=== PATIENT | female | born 1970 | race Two or more races ===

== ENCOUNTER 2020-04-24 19:59 | Inpatient (IN) | payer MEDICAID, OTHER ==
[~2020-04-24] VITALS: Ht 170.2 cm; Wt 131.5 kg
[2020-04-24 20:40] LABS: BASOPHILS # (AUTO) 0.1 /CMM (0.0-0.2); BASOPHILS % (AUTO) 0.8 % (0.0-2.0); EOSINOPHILS % (AUTO) 2.8 % (0.0-6.0); HEMATOCRIT 39 % (33-45); HEMOGLOBIN 12.7 g/dL (11.5-14.8); LYMPHOCYTES # (AUTO) 2.7 /CMM (0.8-4.8); LYMPHOCYTES % (AUTO) 32.4 % (20.0-44.0); MEAN CORPUSCULAR HGB CONC 33 g/dl (31.0-36.0); MEAN CORPUSCULAR VOLUME 91 fL (82-100); MONOCYTES # (AUTO) 0.7 /CMM (0.1-1.30); MONOCYTES % (AUTO) 8.4 % (2.0-12.0); NEUTROPHILS # (AUTO) 4.7 /CMM (1.8-8.9); NEUTROPHILS % (AUTO) 55.6 % (43.0-81.0); PLATELET COUNT (AUTO) 285 /CMM (150-450); RED BLOOD CELL COUNT(AUTO) 4.25 MIL/uL (4.0-5.2); WHITE BLOOD COUNT (AUTO) 8.5 K/uL (4.3-11.0)
--- NOTE | 2020-04-24 20:51 | NUR ---
ERA FROM HOME TO ER BED 12. AAOX4. NOT IN RESP DISTRESS, BREATHING EVEN AND UNLABORED. BROUGHT IN FOR LEFT SIDED NUMBNESS WHICH STARTED @ 1630. PER REPORT AND PT, SHE WAS ON HER WAY OUT FOR DINNER WHEN STARTED TO FEEL NUMB AND TINGLING, SHE WAS REPORTED TO HAVE FACIAL DROOP AT THAT TIME BUT NON NOTED UPON ASSESSMENT. PT VERBALIZED THAT THE SYPMPTOMS IS NOT PRESENT WHILE WE ARE DOING THE ASSESSMENT. MD WAS AT THE BEDSIDE FOR EVAL. ORDERS RECEIVED NOTED AND CARRIED OUT. IV LINE ESTABLISHED ON L AC 20G. BLOO DRAWN AND GIVEN TO TEXTILES SALES REPRESENTATIVE AT BEDSIDE.
--- NOTE | 2020-04-24 21:01 | NUR ---
BACK FROM CT ON [facility]
[2020-04-24 21:02] LABS: CALCIUM, SERUM 8.4 mg/dL (8.5-10.1); CARBON DIOXIDE 24 mmol/L (21-32); CHLORIDE 104 mmol/L (98-107); CREATININE 0.8 mg/dL (0.6-1.3); GLUCOSE 93 mg/dL (74-106); POTASSIUM 3.5 mmol/L (3.5-5.1); SODIUM SERUM 138 mmol/L (136-145); UREA NITROGEN, BLOOD 16 mg/dL (7-18)
--- NOTE | 2020-04-24 21:08 | NUR ---
COVID SWAB DONE AND SENT TO LAB
--- NOTE | 2020-04-24 21:08 | NUR ---
WENT TO PT TO DO COVID SWAB. PT VERBALIZED THAT THE ARM TIGNLING AND WITH PAIN. MD MADE AWARE.
[2020-04-24] MEDS ORDERED: ALPRAZOLAM 0.5 MG TABLET PO ONE (21:30)
[2020-04-24] MEDS ORDERED: ALPRAZOLAM 0.5 MG TABLET ONE (21:41)
--- NOTE | 2020-04-24 22:09 | NUR ---
SPOKE WITH PATIENT'S , CASSANDRA ANIL FOR UPDATES REGARDING HER .
--- NOTE | 2020-04-24 22:30 | NUR ---
REPORT GIVEN TO JOEL JHA FOR SHAN
[2020-04-24 22:45] VITALS: BP 170/75
[2020-04-24 22:50] VITALS: BP 162/99
--- NOTE | 2020-04-24 22:50 | NUR ---
MS RN ADMITTING NOTES PATIENT RECEIVED VIA GURNEY ACCOMPANIED BY ER STAFF. PATIENT AMBULATORY, A/O X 4, STABLE ON RA WITH BREATHING EVEN AND UNLABORED. NO SOB NOTED. NO SIGNS OF ACUTE DISTRESS. COMPLAINTS OF DISCOMFORT ON L SIDE. IV LOCATED ON R AC #20 SL. VITALS TAKEN. BELONGINGS ACCOUNTED FOR. SKIN ASSESSMENT DONE. PATIENT ORIENTED TO ROOM AND STAFF. WILL CONTINUE TO MONITOR.
--- NOTE | 2020-04-24 22:51 | NUR ---
PT TRANSPORT TO UNIT ON [facility] WITH EMT AND RN AT BEDSIDE W/ ACLS PROTOCOL. NAD NOTED DURING TRANSPORT.
[2020-04-24] MEDS ORDERED: hydrALAZINE HCL IV 20 MG VIAL IV PRN (23:00)
[2020-04-24] MEDS ORDERED: ACETAMINOPHEN 325 MG TABLET PO PRN (23:00)
[2020-04-24] MEDS ORDERED: MAG HYDROX/AL HYDROX/SIMETH 30 ML UDC PO PRN (23:00)
[2020-04-25] VITALS (7 sets, daily range): BP systolic 104–162; BP diastolic 72–99
[2020-04-25] MEDS ORDERED: BLOOD SUGAR DIAGNOSTIC 1 EACH STRIP IN SCH
--- NOTE | 2020-04-25 01:26 | NUR ---
RN NOTES PATIENT COMPLAINING OF NECK AND SHOULDER PAIN AND STIFFNESS. WARM COMPRESS APPLIED.
[2020-04-25 03:10] LABS: APPEARANCE,URINE CLEAR (CLEAR); BILIRUBIN,URINE NEGATIVE (NEGATIVE); BLOOD, URINE SMALL Ery/uL (NEGATIVE); COLOR,URINE YELLOW (YELLOW); KETONES,URINE NEGATIVE (NEGATIVE); LEUKOCYTE ESTERASE ,URINE NEGATIVE (NEGATIVE); NITRITE, URINE NEGATIVE (NEGATIVE); PROTEIN,URINE NEGATIVE (NEGATIVE); UGLUCOSE NEGATIVE (NEGATIVE); UROBILINOGEN,URINE 0.2 EU/dL (0.2)
[2020-04-25] MEDS: HEPARIN SODIUM, PORCINE 5000 UNITS/1 ML VIAL SQ SCH ×3 (04:06→22:12)
--- NOTE | 2020-04-25 06:41 | NUR ---
RN CLOSING NOTES PATIENT RESTING IN BED A/O X 4. STABLE ON RA WITH BREATHING EVEN AND UNLABORED, NO SOB NOTED. NO SIGNS OF ACUTE DISTRESS. COMPLAINTS OF PAIN ON LEFT SIDE OF UPPER EXTREM, NECK AND SHOULDER- HEAT APPLIED. TELE MONITOR READING SR 68. IV LOCATED ON [facility] #20 SL. SAFETY PRECAUTIONS IN PLACE WITH BED IN LOWEST POSITION, CALL LIGHT WITHIN REACH, BREAKS ON, SIDE RAILS UP. ALL NEEDS ATTENDED TO. WILL ENDORSE TO ONCOMING SHIFT ABOUT SHAN.
[2020-04-25 07:26] LABS: BASOPHILS # (AUTO) 0.1 /CMM (0.0-0.2); BASOPHILS % (AUTO) 0.8 % (0.0-2.0); HEMATOCRIT 39 % (33-45); HEMOGLOBIN 12.8 g/dL (11.5-14.8); LYMPHOCYTES # (AUTO) 2.4 /CMM (0.8-4.8); LYMPHOCYTES % (AUTO) 32.4 % (20.0-44.0); MEAN CORPUSCULAR HGB CONC 33 g/dl (31.0-36.0); MEAN CORPUSCULAR VOLUME 90 fL (82-100); MONOCYTES # (AUTO) 0.6 /CMM (0.1-1.30); MONOCYTES % (AUTO) 8.6 % (2.0-12.0); NEUTROPHILS # (AUTO) 4.1 /CMM (1.8-8.9); NEUTROPHILS % (AUTO) 54.2 % (43.0-81.0); PLATELET COUNT (AUTO) 280 /CMM (150-450); RED BLOOD CELL COUNT(AUTO) 4.32 MIL/uL (4.0-5.2); WHITE BLOOD COUNT (AUTO) 7.5 K/uL (4.3-11.0)
[2020-04-25] MEDS: BLOOD SUGAR DIAGNOSTIC 1 EACH STRIP IN SCH ×4 (07:30→22:13)
--- NOTE | 2020-04-25 07:35 | NUR ---
MS/RN Opening note Patient received from assistant casino shift manager. A/O X4, vital signs stable, denies any pain or discomfort. Ambulatory, skin intact, no new concerns at this time. Heplock to right AC flushing well with normal saline, no signs of any infiltration seen. Call light within reach, bed in low setting, brakes locked, side rails X3 in upright position. Will continue to monitor and ensure safety.
[2020-04-25 07:54] LABS: ALBUMIN 3.3 g/dL (3.4-5.0); CALCIUM, SERUM 8.3 mg/dL (8.5-10.1); CREATININE 0.6 mg/dL (0.6-1.3); MAGNESIUM 2.1 mg/dL (1.8-2.4); POTASSIUM 3.5 mmol/L (3.5-5.1)
[2020-04-25 08:04] LABS: THYROID STIMULATING HORMONE 2.346 uIU/mL (0.358-3.74)
[2020-04-25] MEDS: PANTOPRAZOLE 40 MG TABLET.DR PO SCH (08:06)
[2020-04-25] MEDS: ASPIRIN EC 325 MG TABLET.DR PO SCH (08:06)
[2020-04-25] MEDS ORDERED: METO25TA20 PO (09:27)
[2020-04-25] MEDS ORDERED: NICO-676 TP (09:27)
[2020-04-25] MEDS ORDERED: LISI-607 PO (09:27)
[2020-04-25] MEDS ORDERED: AMIT50TA3 PO (09:27)
[2020-04-25] MEDS ORDERED: ESCI10TA PO (09:27)
--- NOTE | 2020-04-25 09:49 | NUR ---
MS/RN Swallow evaluation Bedside swallow evaluatin at bedside, no difficulties noted.
--- NOTE | 2020-04-25 11:30 | NUR ---
Social Service consult requested by Elina Capps NP for stroke. Patient presented to [facility] ER 04/24, per note patient had left sided numbness. Patient is a 49-year-old female. Patient is alert and orientedx4. Patient confirmed date of , social security, and address on face sheet. Per patient, apartment is above an extra space storage location, on-site apartment. Patient reports living with Jose . Patient reports she met Jose 20 years ago and they have been for 4 years. Per patient, Jose is the only person working in the home. Per patient, no one in the home receives government aid like [employer] or Food [place]. Patient reports drinking alcohol on special occasions only, if that. Patient denies drug use. Patient reports cigarette use. Per patient she smokes 4 cigarette buds a day, sometimes less. SW asked this patient if she would like information on how to stop smoking and patient declined. Patient does not report a mental health diagnosis. Patient denies auditory and visual hallucinations. Patient denies suicidal and homicidal ideation. Party Plan Sales Consultant conducted PHQ-9 on this patient. Patient scored a 2 for non to mild depression. This SW to provide stroke resources to the patient. This SW to remain available for all needs regarding this patient.
--- NOTE | 2020-04-25 11:44 | NUR ---
MS/RN Blood sugar Blood sugar at 1130 87, no coverage needed.
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
--- NOTE | 2020-04-25 15:00 | NUR ---
MS/RN S/B Nain Raza Seen by DNP - continue withcurrent plan of care, await neuro consult with Dr More.
[2020-04-25] MEDS: HYDROCODONE/APAP 10/325MG TABLET PO PRN (16:55)
--- NOTE | 2020-04-25 18:15 | NUR ---
MS/RN End note Remains in stable condition. All needs attended, questions and concerns addressed. Awaiting neuro consult with Dr More.
--- NOTE | 2020-04-25 19:37 | NUR ---
ms rn opening note received patient in bed. a/ox4. tolerating room air. respirations are even and unlabored. no s/s sob noted. c/o pain in left arm and neck d/t muscle twitching/tremors. pain medication not due. patient understands. currently has ice pack on left shoulder. in no apparent distress. iv access in LAC#20 patent and saline locked. bed is low and locked, hob elevated in high fowlers, side rails up x2. call light within reach. will continue to monitor.
--- NOTE | 2020-04-25 21:57 | NUR ---
ms rn note called fabrication manager MD Dr. Rollins that patient is requesting a sleeping pill. MD telephone order ambien 5mg one time. order read back noted and carried out. will continue to monitor.
[2020-04-25] MEDS ORDERED: ZOLPIDEM TARTRATE 5 MG TABLET PO ONE (22:00)
[2020-04-25] MEDS: SIMVASTATIN 10 MG TABLET PO SCH (22:03)
[2020-04-26] MEDS: HEPARIN SODIUM, PORCINE 5000 UNITS/1 ML VIAL SQ SCH ×3 (05:40→21:39)
[2020-04-26] MEDS: BLOOD SUGAR DIAGNOSTIC 1 EACH STRIP IN SCH ×4 (06:07→22:02)
--- NOTE | 2020-04-26 06:34 | NUR ---
ms rn closing note patient resting in bed. a/ox4. remains tolerating room air. respirations are even and unlabored. no resp distress. no apparent distress. iv access maintained in LAC#20 patent and saline locked. bed remains low and locked, hob elevated in high fowlers, side rails up x2. call light within reach. will endorse to next shift.
--- NOTE | 2020-04-26 07:30 | NUR ---
RN Opening Note Received patient in bed, AO x 4, able to responds all stimuli, does no c/o pain or discomfort. Skin is warm to touch, keep clean/dry, intact IV site with SL. Respiratory even and unlabored on room air, no distress observed. Kept bed in locked with elevated HOB for ensure airway and aspiration precaution. Call light within reach, will continue to monitor.
[2020-04-26] MEDS: PANTOPRAZOLE 40 MG TABLET.DR PO SCH (07:45)
[2020-04-26 08:00] VITALS: BP 154/103
[2020-04-26] MEDS: ASPIRIN EC 325 MG TABLET.DR PO SCH (08:45)
[2020-04-26] MEDS: LORAZEPAM 1 MG TABLET PO PRN (14:06)
[2020-04-26 16:00] VITALS: BP 149/102
[2020-04-26] MEDS ORDERED: OLANZAPINE 10 MG VIAL IM STA (16:23)
--- NOTE | 2020-04-26 18:55 | NUR ---
RN Closing note Patient in bed, back from MRI brain, dose no appears pain or distress, respiratory even and unlabored on room air. Skin is warm to touch, keep clean/dry. Pt spoke with Dr. More and received new order MRI brain and Zyprexa for muscle twitching. Kept bed in locked with elevated HOB for ensure airway and aspiration precaution. Call light within reach, will endorse overnight cashier.
--- NOTE | 2020-04-26 19:36 | NUR ---
MS RN NOTES RECEIVED PATIENT AWAKE ALERT ORIENTED X4. BREATHING EVEN AND UNLABORED. NO SIGNS OF ACUTE RESPIRATORY OR CARDIAC DISTRESS NOTED. PERIPHERAL IV ACCESS INTACT AND PATENT. SAFETY MEASURES IN PLACE, ASPIRATION PRECAUTION EMPHASIZED. CALL LIGHT WITH IN EASY REACH. DENIES ANY PAIN OR DISCOMFORT AT THIS TIME. BED IN LOW LOCKED POSITIONED. ALL NEEDS ANTICIPATED. WILL CONTINUE TO MONITOR ACCORDINGLY.
[2020-04-26 20:22] VITALS: BP 153/94
--- NOTE | 2020-04-26 21:20 | NUR ---
MS RN NOTES RECEIVED REPORT FROM RADIOLOGY DEPARTMENT,AT 21:09 PER MICHELE. MRI BRAIN WITHOUT CONTRAST SHOWS 2.1 CM ACUTE STROKE AT RIGHT BASAL GANGLIA, NO HEMORRHAGE, NO MIDLINE SHIFT. INFORMED DR. KAMLA FRAGOSO MD NO ORDERS AT THIS TIME.
[2020-04-26] MEDS: SIMVASTATIN 10 MG TABLET PO SCH (21:41)
[2020-04-27] MEDS: HEPARIN SODIUM, PORCINE 5000 UNITS/1 ML VIAL SQ SCH ×3 (04:39→22:23)
--- NOTE | 2020-04-27 06:34 | NUR ---
MS RN NOTES ALL NEEDS ATTENDED AND MET. ABLE TO REST AND SLEPT AT INTERVALS. NOTED WITH MUSCLE TWITCHING MOST PROMINENT ON HER LEFT UPPER EXTREMITY, HER ARM AND LEFT HAND. NO SIGNS OF BLEEDING. ABLE TO MAKE NEEDS KNOWN. ABLE TO WALK TOWARDS THE TOILET WITH ASSISTANCE FOR SAFETY. SAFETY MEASURES INPLACE. CALL LIGHT WITH IN EASY REACH. ALL NEEDS ANTICIPATED. DENIES PAIN AT THIS TIME. WILL ENDORSE TO AM NURSE FOR CONTINUITY OF CARE.
[2020-04-27] MEDS: BLOOD SUGAR DIAGNOSTIC 1 EACH STRIP IN SCH ×4 (07:03→22:26)
--- NOTE | 2020-04-27 07:30 | NUR ---
MS RN NOTES INFORMED DR. JULY MD REGARDING MRI OF THE BRAIN RESULT, 21 MM ACUTE STROKE, AT RIGHT BASAL GANGLIA NO HEMORRHAGE, NO MIDLINE SHIFT. NO ORDER AT THIS TIME. ENDORSED TO AM NURSE.
--- NOTE | 2020-04-27 07:33 | NUR ---
ms rn received on bed, awake,alert,oriented x4,patient noted to have a pain at left arm 6/10, constantly shaking, no sob noted, will monitor patient.
[2020-04-27 08:00] VITALS: BP 145/94
[2020-04-27] MEDS: PANTOPRAZOLE 40 MG TABLET.DR PO SCH (08:37)
[2020-04-27] MEDS: HYDROCODONE/APAP 10/325MG TABLET PO PRN (08:37)
[2020-04-27] MEDS: ASPIRIN EC 325 MG TABLET.DR PO SCH (08:37)
[2020-04-27] MEDS ORDERED: OLANZAPINE 10 MG VIAL IM STA (08:59)
[2020-04-27] MEDS ORDERED: risperiDONE 1 MG TABLET PO SCH (09:00)
--- NOTE | 2020-04-27 09:00 | NUR ---
ms bermudez breakfast served,due meds given,tolerated well.
--- NOTE | 2020-04-27 09:20 | NUR ---
ms lara freeman w/ doctor heather w/ orders made and carried out.
[2020-04-27] MEDS ORDERED: CT SWABBABLE VALVE TRANS SET 1 EA INFUS.SET MC ONE (10:00)
[2020-04-27] MEDS ORDERED: IV NS 0.9% 250 ML IV ONE (10:00)
[2020-04-27] MEDS ORDERED: IOHEXOL-350 100 ML VIAL IV ONE (10:00)
[2020-04-27] MEDS ORDERED: risperiDONE 1 MG TABLET PO PRN (10:30)
--- NOTE | 2020-04-27 11:56 | NUR ---
RN NOTE REAL ESTATE MANAGEMENT SPECIALIST RUSS [place] IS MADE AWARE TO DO MED RECON.
[2020-04-27 12:00] VITALS: BP 155/89
[2020-04-27] MEDS: GABAPENTIN 100 MG CAPSULE PO SCH ×2 (14:19→17:40)
[2020-04-27 16:00] VITALS: BP 122/70
--- NOTE | 2020-04-27 16:00 | NUR ---
ms rn dr. romero notified of cta carotid and brain result, awaiting for any orders.
--- NOTE | 2020-04-27 17:09 | NUR ---
ms rn on bed, no distress noted.
[2020-04-27 20:00] VITALS: BP_SYST 135; BP_SYST 150; BP_DIAS 70; BP_DIAS 80
[2020-04-27] MEDS: SIMVASTATIN 10 MG TABLET PO SCH (22:02)
[2020-04-28] VITALS (7 sets, daily range): BP systolic 127–177; BP diastolic 76–105
--- NOTE | 2020-04-28 00:38 | NUR ---
MS/TELE/RN PATIENT IS SLEEPING AT THIS TIME, APPEAR COMFORTABLE, NO SIGNS OF DISTRESS NOTED, CALL LIGHT IN REACH. WILL CONTINUE TO MONITOR.
[2020-04-28] MEDS: HYDROCODONE/APAP 10/325MG TABLET PO PRN ×2 (04:43→22:32)
[2020-04-28] MEDS: HEPARIN SODIUM, PORCINE 5000 UNITS/1 ML VIAL SQ SCH ×3 (05:32→20:54)
[2020-04-28] MEDS: BLOOD SUGAR DIAGNOSTIC 1 EACH STRIP IN SCH ×4 (06:21→21:08)
--- NOTE | 2020-04-28 06:31 | NUR ---
MS/TELE/RN PATIENT APPEAR SLEEPING AT THIS TIME, APPEAR COMFORTABLE, NO SIGNS OF DISTRESS NOTED, CALL LIGHT IN REACH, ALL NEEDS ATTENDED AT THIS TIME, WILL CONTINUE TO MONITOR.
--- NOTE | 2020-04-28 07:25 | NUR ---
PATIENT RELATIONS MANAGER OPENING NOTES BEDSIDE ENDORSEMENT DONE. PATIENT IS IN BED AWAKE AND VERBALLY RESPONSIVE. NOT IN ACUTE DISTRESS. AXO X4, ABLE TO MAKE NEEDS KNOWN. BREATHING EVEN AND UNLABORED, TOLERATING ROOM AIR. ON TELE MONITORING SR W/ HR IN THE 70'S, NO CARDIAC DISTRESS NOTED. IV SITE ON LAC G#20 INTACT AND PATENT. SAFETY PRECAUTIONS IN PLACE: BED IN LOWEST AND LOCKED POSITION, SR UP X2, CALL LIGHT PLACED W/IN REACH. WILL CONTINUE TO MONITOR.
[2020-04-28] MEDS: PANTOPRAZOLE 40 MG TABLET.DR PO SCH (07:55)
[2020-04-28] MEDS: GABAPENTIN 100 MG CAPSULE PO SCH ×3 (08:06→16:31)
[2020-04-28] MEDS: ASPIRIN EC 325 MG TABLET.DR PO SCH (08:06)
[2020-04-28] MEDS: OLANZAPINE 2.5 MG TABLET PO PRN ×3 (11:15→23:47)
--- NOTE | 2020-04-28 11:16 | NUR ---
RN NOTES PATIENT NOTED W/ UNINTENTIONAL/UNCONTROLLED TREMORS ON L ARM. DR. MUNOZ SPOKE TO PATIENT AND ORDERED TO GIVE ZYPREXA 2.5MG PO. ZYPREXA GIVEN AT 1115. WILL CONTINUE TO MONITOR.
--- NOTE | 2020-04-28 11:23 | NUR ---
RN NOTES PT SEEN AND EVALUATED BY . DIET CHANGED FROM [facility] REGULAR TO [facility] SOFT DIET. WILL CONTINUE TO MONITOR
--- NOTE | 2020-04-28 18:47 | NUR ---
PLASTERER SPRAY GUN CLOSING NOTES PATIENT IS IN BED AWAKE AND VERBALLY RESPONSIVE. NOT IN ACUTE DISTRESS. AXO X4 AND ABLE TO MAKE NEEDS KNOWN. BREATHING EVEN AND UNLABORED ON ROOM AIR. ON TELE MONITORING, SR W/ HR IN THE MID 70'S, NO CARDIAC DISTRESS NOTED. IV SITE ON LAC G#20 INTACT AND PATENT. AMBULATES SAFELY TO BR. SAFETY PRECAUTIONS IN PLACE: BED IN LOWEST AND LOCKED POSITION, SR UP X2, CALL LIGHT PLACED W/IN REACH. WILL ENDORSE TO DIABETES EDUCATOR RN FOR SHAN.
--- NOTE | 2020-04-28 20:00 | NUR ---
STOCK SAW OPERATOR: RECEIVED REPORT FROM DAY RN. PT IN BED, AWAKE, A/O X4, ON RA RESPIRATIONS EVEN AND UNLABORED. TELE SINUS RHYTHM HR 65, NOTED CHOREA MOVEMENT ON LEFT ARM, MD AWARE. NIHSS ASSESSMENT PERFORMED OBTAINED SCORE OF 3, SAME FROM PREVIOUS SCORE, PASSED SWALLOW SCREEN, DISCUSSED PLAN OF CARE TO PT. SEIZURE PRECAUTION MAINTAINED. SAFETY PRECAUTIONS FOR FALL INITIATED, CALL LIGHT IN REACH, WILL CONTINUE MONITORING PT.
--- NOTE | 2020-04-28 20:42 | NUR ---
RN NOTES: RECHECK BP, REMAINS ELEVATED 166/105 HR 90, DIRECTOR EAST COAST SALES RUSS CURRENTLY IN THE UNIT, INFORMED THERE IS PRN ORDER FOR APRESOLINE IV 20MG HOWEVER ONLY FOR TELE TD/ICU/CCU ONLY, PER DIRECTOR EAST COAST SALES ITS OKAY FOR NOW, CONTINUE MONITORING PT'S BP. OKAY TO GIVE P[RN PAIN MEDICATION OR ATIVAN.
[2020-04-28] MEDS: LORAZEPAM 1 MG TABLET PO PRN (20:55)
--- NOTE | 2020-04-28 20:56 | NUR ---
PRN ATIVAN: PT REQUESTING FOR ATIVAN FOR ANXIETY, STATED THIS WILL HELP HER RELAX. ALSO ACCDG TO PT, THE PAIN IS MOSTLY ON IV ACCESS SITE, RN WILL TRY INSERTING NEW IV ACCESS. PRN ATIVAN 1MG TAB PO ADMINISTERED TO PT AT THIS TIME. WILL CONTINUE MONITORING PT.
[2020-04-28] MEDS: SIMVASTATIN 10 MG TABLET PO SCH (21:10)
--- NOTE | 2020-04-28 22:32 | NUR ---
PRN NORCO: PT C/O IV ACCESS SITE PAIN (PREVIOUS ACCESS SITE RIGHT AC AREA)02/10, PRN NORCO 10/325 MG TAB PO ADMINISTERED TO PT AT THIS TIME.
--- NOTE | 2020-04-28 23:00 | NUR ---
RN NOTES: PAGED JUAN ALBERTO BECERRIL HOSPITALIST, BP STILL ELEVATED.
--- NOTE | 2020-04-28 23:06 | NUR ---
RN NOTES: NOTIFIED EPIC MD HOSPITALIST REGARDING BP OF PT, REMAINS ELEVATED, PRN APRESOLINE ONBOARD BUT DOSE INSTRUCTION ONLY SAYS TO GIVE IN ICU /CCU OR TELE TD, PER MD DO NOT GIVE, JUST MONITOR BLOOD PRESSURE. CHIP UNLOADERSAILAJA WATTERS MADE AWARE.
--- NOTE | 2020-04-28 23:47 | NUR ---
PRN ZYPREXA: PRN ZYPREXA ADMINISTERED FOR PT'S AGITATION, AND CHOREIC MOVEMENT.
[2020-04-29] VITALS (8 sets, daily range): BP systolic 127–177; BP diastolic 60–108
[2020-04-29] MEDS: HEPARIN SODIUM, PORCINE 5000 UNITS/1 ML VIAL SQ SCH ×3 (04:27→20:47)
[2020-04-29] MEDS: LORAZEPAM 1 MG TABLET PO PRN ×3 (04:28→18:22)
--- NOTE | 2020-04-29 04:29 | NUR ---
prn ativan: prn ativan administered for anxiety and agitation, unintentional movement of left arm.
[2020-04-29] MEDS: BLOOD SUGAR DIAGNOSTIC 1 EACH STRIP IN SCH ×4 (06:16→21:10)
--- NOTE | 2020-04-29 06:16 | NUR ---
accu check : blood sugar test performed and result is 112.
--- NOTE | 2020-04-29 06:54 | NUR ---
END OF SHIFT REPORT: PT REMAINS A/O X4, ON RA, NCHOREA MOVEMENT ON LEFT ARM AND LEGS NOTED TO STILL BE PRESENT AND WORSEN, MD AWARE. PRN ZYPREXA, ATIVAN, NORCO ADMINISTERED ORDER. IV ACCESS REMAINS PATENT AND LFUSHING WELL, ON HL, NO S/S OF IV INFILTRATION NOTED. NIHSS SCORE REMAINS 3. AMBULATES WITH ASSIST. REMAINS ON TELE MONITORING , VS REMAINS STABLE, NEED ATTENDED. ARU PLACEMENT. SAFETY PRECAUTIONS FOR FALL REMAINS ENGAGED, CALL LIGHT IN REACH, WILL ENDORSE TO DAY RN FOR CONTINUITY OF CARE.
--- NOTE | 2020-04-29 08:00 | NUR ---
SEED CLEANING MACHINE OPERATOR AM NOTES PATIENT IS IN BED AWAKE AND VERBALLY RESPONSIVE. NOT IN ACUTE DISTRESS. AXO X4 AND ABLE TO MAKE NEEDS KNOWN. BREATHING EVEN AND UNLABORED ON ROOM AIR. ON TELE MONITORING, SR W/ HR IN THE MID 70'S, NO CARDIAC DISTRESS NOTED. IV SITE ON LAC G#20 INTACT AND PATENT. AMBULATES SAFELY TO BR. SAFETY PRECAUTIONS IN PLACE: BED IN LOWEST AND LOCKED POSITION, SR UP X2, CALL LIGHT PLACED W/IN REACH.
[2020-04-29] MEDS: PANTOPRAZOLE 40 MG TABLET.DR PO SCH (08:18)
[2020-04-29] MEDS: CALCIUM CARB 600MG /VIT D 1 EACH TABLET PO SCH (08:19)
[2020-04-29] MEDS: ASPIRIN EC 325 MG TABLET.DR PO SCH (08:19)
[2020-04-29] MEDS: GABAPENTIN 100 MG CAPSULE PO SCH ×3 (08:19→16:14)
[2020-04-29] MEDS: HYDROCODONE/APAP 10/325MG TABLET PO PRN ×3 (08:51→20:49)
[2020-04-29] MEDS: OLANZAPINE 2.5 MG TABLET PO PRN (08:51)
--- NOTE | 2020-04-29 12:00 | NUR ---
DR MCDOWELL SPOKE TO THE PT VIA [employer].
[2020-04-29 14:06] LABS: *dPT CONFIRM RATIO 1.08 Ratio (0.00-1.40); *dRVVT 35.6 sec (0.0-47.0); PROTEIN C ACTIVITY 177 % (73-180)
--- NOTE | 2020-04-29 14:15 | NUR ---
DR MUNOZ CALLED WITH NEW ORDERS OF INCREASING ZYPREXA 3 MG PO Q 6 HRS ATC AND DC THE PRN AND MONITOR FOR EFFECTIVENESS.
[2020-04-29] MEDS: OLANZAPINE 2.5 MG TABLET PO SCH (16:05)
--- NOTE | 2020-04-29 16:59 | NUR ---
PT RESTING IN BED WATCHING ON HER PHONE. REMAINS AWAKE ,ALERT AND HAVEN'T HAD ANY EPISODE OF SEDATION WITH THE PRN MEDS OF NORCO,ATIVAN PO AND ZYPREXA SHE RECEIVED THE WHOLE SHIFT WITH NO S.S OF DISTRESS OR DISCOMFORT WITH OCCASIONAL FLAPPING MOTION OF HER LEFT ARM.ABLE TO MOVE RT ARM WNL.WILL CONTINUE TO MONITOR.CALL LIGHT PLACED WITHIN REACH.
[2020-04-29] MEDS ORDERED: OLANZAPINE 2.5 MG TABLET PO SCH (18:00)
--- NOTE | 2020-04-29 20:00 | NUR ---
PEST CONTROL PILOT OPENING NOTES RECEIVED PATIENT IN BED, AWAKE, CONSCIOUS, COOPERATIVE, A/O X 4, BREATHING AT ROOM AIR, UNLABORED BREATHING, NO SIGNS OF RESPIRATORY DISTRESS, ON TELE MONITORING, NO CARDIAC DISTRESS NOTED, RFA #22G, SIDE RAILS UP X 2, WILL CONTINUE TO MONITOR.
[2020-04-29] MEDS: SIMVASTATIN 10 MG TABLET PO SCH (21:10)
[2020-04-30] VITALS (8 sets, daily range): BP systolic 134–165; BP diastolic 75–123
[2020-04-30] MEDS: LORAZEPAM 1 MG TABLET PO PRN ×4 (01:09→21:58)
[2020-04-30] MEDS: HEPARIN SODIUM, PORCINE 5000 UNITS/1 ML VIAL SQ SCH ×3 (05:07→20:24)
[2020-04-30] MEDS: BLOOD SUGAR DIAGNOSTIC 1 EACH STRIP IN SCH ×4 (06:23→21:55)
[2020-04-30] MEDS: HYDROCODONE/APAP 10/325MG TABLET PO PRN ×4 (06:33→23:44)
--- NOTE | 2020-04-30 06:54 | NUR ---
TOUCH UP CARVER CLOSING NOTES ENDORSED PATIENT IN BED, AWAKE, CONSCIOUS, A/O X 4, BREATHING AT ROOM AIR, NO SIGNS OF RESPIRATORY DISTRESS WHOLE SHIFT, ON TELE MONITORING ST 113, NO CARDIAC DISTRESS WHOLE SHIT, RFA #22G, INTACT, FLUSHED, NO REDNESS OR INFILTRATION NOTED, DUE MEDS GIVEN, PROVIDED COMFORT AND CARE, SIDE RAILS UP X 2 FOR SAFETY, BED IN LOWEST POSITION.
--- NOTE | 2020-04-30 07:23 | NUR ---
MS/RN Opening note Patient received from night stocker. A/O X4, vital signs stable, complaining of pain to left arm, stating that it feels like muscle pain from where arm is constantly moving. [place] one tablet administered at 0630, will monitor effectiveness. Heplock to right forearm, flushing well with normal saline, no signs of infiltration seen. Tele reading normal sinus rhythm, heart rate in the 80's. Bed in low setting, upper side rails padded to prevent injury, brakes locked, call light within reach. Will continue to monitor and ensure safety.
[2020-04-30] MEDS: OLANZAPINE 2.5 MG TABLET PO SCH ×2 (08:06→13:11)
[2020-04-30] MEDS: PANTOPRAZOLE 40 MG TABLET.DR PO SCH (08:06)
[2020-04-30] MEDS: ASPIRIN EC 325 MG TABLET.DR PO SCH (08:06)
[2020-04-30] MEDS: GABAPENTIN 100 MG CAPSULE PO SCH ×3 (08:06→17:36)
[2020-04-30] MEDS: CALCIUM CARB 600MG /VIT D 1 EACH TABLET PO SCH (08:06)
--- NOTE | 2020-04-30 10:00 | NUR ---
MS/RN Pain Complaining of pain to left shoulder, requesting x-ray to ensure no muscle or tendon tear. DIE DESIGNER aware and will order x-ray.
--- NOTE | 2020-04-30 12:00 | NUR ---
MS/RN BLood sugar Blood sugar at 1130 107, no coverage at this time.
--- NOTE | 2020-04-30 14:00 | NUR ---
MS/RN S/B Anahi Lance CHECKER Seen by CHECKER - await placement. Call received from [facility], requested information provided. Stated they will call and speak with patient's Jose to obtain further information and then present case lynda kaye MD.
--- NOTE | 2020-04-30 15:28 | NUR ---
MS/RN S/B Dr Urbano Seen by Dr Urbano - annie increased to 5mg every six hours.
[2020-04-30] MEDS: OLANZAPINE 5 MG TABLET PO SCH ×2 (17:36→20:24)
--- NOTE | 2020-04-30 18:46 | NUR ---
MS/RN End note Patient requesting order be obtained for benadryl 50mg as this is the only medication that helps her to sleep. Anahi Lance called to ask for order. All other needs meet, updated as to plan of care and evaluation status for placement at acute rehab. updated via telephone to plan and in agreement. All questions and concerns addressed, will endorse to night order selector.
--- NOTE | 2020-04-30 19:30 | NUR ---
TELE/RN OPENING NOTES: PATIENT REPORT RECEIVED FROM DAY SHIFT RNEASTON. PT IN BED SITTING DOWN, WATCHING TV, A/OX4, NO C/O OF PAIN AT THIS TIME, LUE ARM IS CONSTANTLY MOVING. HEPLOCK TO RIGHT FOREARM, FLUSHING WELL WITH NORMAL SALINE, NO SIGNS OF INFILTRATION SEEN. TELE READING NORMAL SINUS RHYTHM WITH PVC, HEART RATE IN THE 90'S. SAFETY MEASURES IN PLACE. BED IN LOW, LOCKED POSITION WITH SR UPX2. UPPER SIDE RAILS PADDED TO PREVENT INJURY, BRAKES LOCKED, CALL LIGHT WITHIN REACH. WILL CONTINUE TO MONITOR ACCORDINGLY.
[2020-04-30] MEDS ORDERED: diphenhydrAMINE HCL 25 MG CAPSULE PO PRN (21:00)
[2020-04-30] MEDS: SIMVASTATIN 10 MG TABLET PO SCH (21:51)
--- NOTE | 2020-04-30 21:55 | NUR ---
TELE/RN NOTES: BLOOD SUGAR CHECK IS 101. NO S/S OF HYPERGLYCEMIA. PT STABLE. WILL KEEP MONITORING.
--- NOTE | 2020-04-30 21:58 | NUR ---
TELE/RN NOTES: PT COMPLAINED OF ANXIETY. REQUESTED ATIVAN. VS WNL AND STABLE. ADMINISTERED ATIVAN 1MG PO ORDERED. TOLERATED WELL. WILL CONTINUE TO MONITOR.
--- NOTE | 2020-04-30 23:44 | NUR ---
TELE/RN NOTES: PT COMPLAINED OF PAIN. REQUESTED NORCO. VS WNL AND STABLE. ADMINISTERED NORCO 10/325 PO ORDERED. TOLERATED WELL. WILL CONTINUE TO MONITOR.
[2020-05-01] VITALS (7 sets, daily range): BP systolic 111–161; BP diastolic 75–110
--- NOTE | 2020-05-01 00:54 | NUR ---
TELE/RN NOTES: PT REQUESTED FOR BENADRYL. ADMINISTERED 25MG BENADRYL PO ORDERED. TOLERATED WELL. WILL CONTINUE TO MONITOR.
[2020-05-01] MEDS: HEPARIN SODIUM, PORCINE 5000 UNITS/1 ML VIAL SQ SCH ×3 (04:51→21:36)
[2020-05-01] MEDS: LORAZEPAM 1 MG TABLET PO PRN ×3 (04:56→18:45)
--- NOTE | 2020-05-01 04:56 | NUR ---
TELE/RN NOTES: PT COMPLAINED OF ANXIETY. REQUESTED ATIVAN. VS WNL AND STABLE. ADMINISTERED ATIVAN 1MG PO ORDERED. TOLERATED WELL. WILL CONTINUE TO MONITOR.
[2020-05-01] MEDS: BLOOD SUGAR DIAGNOSTIC 1 EACH STRIP IN SCH ×4 (06:50→21:38)
--- NOTE | 2020-05-01 07:00 | NUR ---
TELE/RN NOTES: BS CHECKED 131 FOR AC. NO S/S OF HYPERGLYCEMIA. PT STABLE.
--- NOTE | 2020-05-01 07:38 | NUR ---
TELE/RN CLOSING NOTES: PATIENT REMAINS IN BED LAYING DOWN, REMAINS A/OX4, NO C/O OF PAIN AT THIS TIME, LUE ARM IS CONSTANTLY MOVING. HEPLOCK TO RIGHT FOREARM, FLUSHING WELL WITH NORMAL SALINE, NO S/S OF INFILTRATION. TELE READING NORMAL SINUS RHYTHM WITH PVC, HEART RATE IN THE 90'S. ALL DUE MEDS GIVEN ORDERED. PAIN MANAGED THROUGHOUT THE SHIFT. ALL NURSING NEEDS ATTENDED AND MET. SAFETY MEASURES IN PLACE. BED IN LOW, LOCKED POSITION WITH SR UPX2. UPPER SIDE RAILS PADDED TO PREVENT INJURY, BRAKES LOCKED, CALL LIGHT WITHIN REACH. ENDORSED TO DAY SHIFT FOR SHAN.
--- NOTE | 2020-05-01 08:00 | NUR ---
RN NOTES\ RECEIVED PATIENT IN THE BED A/O X4, V/S TAKEN AND FOLLOWED , PATIENT WAS COMPLAINING OF PAIN GENERALIZED 9/[address] TELE [address]-113, PATIENT USING BATHROOM, IV ACCESS ON RIGHT FA INTACT . SAFETY PRECAUTION MAINTAINED ALL THE TIME.
[2020-05-01] MEDS: ASPIRIN EC 325 MG TABLET.DR PO SCH (08:31)
[2020-05-01] MEDS: PANTOPRAZOLE 40 MG TABLET.DR PO SCH (08:31)
[2020-05-01] MEDS: GABAPENTIN 100 MG CAPSULE PO SCH ×3 (08:31→17:14)
[2020-05-01] MEDS: OLANZAPINE 5 MG TABLET PO SCH ×4 (08:31→21:37)
[2020-05-01] MEDS: CALCIUM CARB 600MG /VIT D 1 EACH TABLET PO SCH (08:32)
[2020-05-01] MEDS: HYDROCODONE/APAP 10/325MG TABLET PO PRN ×3 (08:32→21:38)
--- NOTE | 2020-05-01 08:32 | NUR ---
RN NOTES ADMINISTERED NARCO 10/325 MG PO PRN FOR GENERALIZED PAIN 10/10 PER PATIENT REQUEST, . ALSO ADMINISTERED DUE MEDICATION, OT WORKING WITH THE PATIENT ALSO AT THIS TIME, PATIENT TOLERATED BREAKFAST WELL, SAFETY PRECAUTION MAINTAINED ALL THE TIME.
--- NOTE | 2020-05-01 12:01 | NUR ---
rn notes bs-111mg/dl no coverage given , also administered ativan 1 mg po prn for anxiety per patient request.
[2020-05-01] MEDS: BACLOFEN (10 MG) 10 MG TABLET PO SCH ×2 (13:29→17:14)
--- NOTE | 2020-05-01 15:25 | NUR ---
RN NOTES ADMINISTERED NARCO 10/325 MG PO PRN FOR GENERALIZED PAIN 03/13 PER PATIENT REQUEST, V/S TAKEN BP-161/99. P-101, R-19.
--- NOTE | 2020-05-01 18:40 | NUR ---
RN NOTES PATIENT WAS COMPLAINING OF BODY ON LEFT HAND, AND LEG, AND KEEP MOVING, NOTIFIED HOSPITALIST RUSS MCCLELLAN, AND PER HOSPITALIST ADMINISTERED ATIVAN, AND MONITOR. ORDER TAKEN AND CARRIED OUT. ALSO NOTIFIED CHARGE NURSE.
--- NOTE | 2020-05-01 18:46 | NUR ---
rn notes administered Ativan 1mg po prn for anxiety per patient request, v/s taken bp , p-95, continued monitoring . endorsed oncoming nurse follow plan of care. Addendum: 05/01/20 at 1915 by KIRAN ESCALANTE RN UPPER NOTES BP 111/88, P-95
--- NOTE | 2020-05-01 19:45 | NUR ---
MS/TELE/RN RECEIVED PATIENT SLEEPING, APPEAR COMFORTABLE, BREATHING EVEN AND UNLABORED, CALL LIGHT IN REACH, FALL PRECAUTIONS PER PROTOCOL, WILL MONITOR.
[2020-05-01] MEDS: SIMVASTATIN 10 MG TABLET PO SCH (21:37)
[2020-05-02 00:30] VITALS: BP 103/58
--- NOTE | 2020-05-02 00:33 | NUR ---
MS/TELE/RN PATIENT IS SLEEPING AT THIS TIME, APPEAR COMFORTABLE, NO SIGNS OF DISTRESS NOTED, CALL LIGHT IN REACH, WILL CONTINUE TO MONITOR.
[2020-05-02 04:00] VITALS: BP 146/98
[2020-05-02] MEDS: HYDROCODONE/APAP 10/325MG TABLET PO PRN (04:30)
[2020-05-02] MEDS: HEPARIN SODIUM, PORCINE 5000 UNITS/1 ML VIAL SQ SCH (04:36)
--- NOTE | 2020-05-02 06:11 | NUR ---
MS/TELE/RN PATIENT IS SLEEPING AT THIS TIME, APPEAR COMFORTABLE, NO SIGNS OF DISTRESS NOTED, CALL LIGHT IN REACH, ALL NEEDS ATTENDED AT THIS TIME, WILL CONTINUE TO MONITOR.
[2020-05-02] MEDS: BLOOD SUGAR DIAGNOSTIC 1 EACH STRIP IN SCH ×3 (07:54→16:50)
[2020-05-02 08:00] VITALS: BP 123/75
--- NOTE | 2020-05-02 08:00 | NUR ---
RN NOTES PATIENT AWAKE WAS COMPLAINING OF PAIN LEFT ARM, AND NUMBNESS ON LEFT FINGERS, BS-104 MG/DL, ADMINISTERED SCHEDULED MEDICATION, AND ATIVAN 1 MG PO PRN PER PATIENT REQUEST, V/S WNL, TELE MONITOR SR-82. PATIENT AMBULATORY, SAFETY PRECAUTION MAINTAINED ALL THE TIME.
[2020-05-02] MEDS: GABAPENTIN 100 MG CAPSULE PO SCH ×3 (08:02→16:52)
[2020-05-02] MEDS: OLANZAPINE 5 MG TABLET PO SCH ×3 (08:02→16:52)
[2020-05-02] MEDS: CALCIUM CARB 600MG /VIT D 1 EACH TABLET PO SCH (08:02)
[2020-05-02] MEDS: PANTOPRAZOLE 40 MG TABLET.DR PO SCH (08:02)
[2020-05-02] MEDS: LORAZEPAM 1 MG TABLET PO PRN (08:02)
[2020-05-02] MEDS: ASPIRIN EC 325 MG TABLET.DR PO SCH (08:02)
[2020-05-02] MEDS: BACLOFEN (10 MG) 10 MG TABLET PO SCH ×3 (08:02→16:52)
[2020-05-02 10:07] LABS: *CARD ANTI-CARDIOLIPIN AB IgA <9 APL U/mL (0-11); *CARD ANTI-CARDIOLIPIN AB IgG <9 GPL U/mL (0-14); *CARD ANTI-CARDIOLIPIN AB IgM 12 MPL U/mL (0-12)
--- NOTE | 2020-05-02 13:41 | NUR ---
RN NOTES BS-115 MG/DL NO COVERAGE GIVEN, PATIENT STATE FEELING BETTER TODAY, DISCHARGE PLAN IS REHAB PLACEMENT.
[2020-05-02] MEDS ORDERED: ASPI-869 PO (17:29)
[2020-05-02] MEDS ORDERED: SIMV10TA98 PO (17:29)
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
[2020-05-03] MEDS ORDERED: LORA-259 PO (11:36)
[2020-05-03] MEDS ORDERED: LISI-607 PO (11:39)
== END 2020-05-02 18:02 | disposition home health service (06) | DRG 45 ==
LOC: ER 20:01 → MED 22:14 → TELE 04-25 00:40 → MED 04-25 08:26 → TELE 04-27 08:58
PROVIDERS: ADMIT Registered Nurse; ATTEND Hospitalist
DX: I63.9 Cerebral infarction, unspecified (principal); G24.01 Drug induced subacute dyskinesia; I10 Essential (primary) hypertension; F41.9 Anxiety disorder, unspecified; F32.9 Major depressive disorder, single episode, unspecified; E66.01 Morbid (severe) obesity due to excess calories; Z68.42 Body mass index [BMI] 45.0-49.9, adult; G25.5 Other chorea; Z96.653 Presence of artificial knee joint, bilateral; Z96.641 Presence of right artificial hip joint; F43.10 Post-traumatic stress disorder, unspecified; E78.5 Hyperlipidemia, unspecified; Z72.0 Tobacco use; M54.12 Radiculopathy, cervical region; Z91.81 History of falling; Z91.5 Personal history of self-harm; Z62.810 Personal history of physical and sexual abuse in childhood; V89.2XXS Person injured in unspecified motor-vehicle accident, traffic, sequela; R40.2412 Glasgow coma scale score 13-15, at arrival to emergency department
CPT/HCPCS: 36415; 70450-TC; 70496-TC; 70498-TC; 70551-TC; 71045-TC; 73030-TC; 80048-TC; 80053-TC; 80061-TC; 80305; 81000-TC; 82962-TC; 83735-TC; 84100-TC; 84443-TC; 84484-TC; 84703-TC; 85025-TC; 85303; 85613; 85670; 85705; 85732; 86147; 87081-TC; 92611-TC; 93307-TC; 93880-TC; 97110-TC; 97112-TC; 97116-TC; 97530-TC; 97535-TC; C9803; G0378; J1644; J3490; J7050; Q0163; Q9967

== ENCOUNTER 2020-12-28 21:11 | Inpatient (IN) | payer MEDICAID ==
[~2020-12-28] VITALS: Ht 170.2 cm; Wt 136.1 kg
[~2020-12-28 21:11] MED LIST: AMIT50TA3 PO; ASPI-869 PO; ESCI10TA PO; LISI-768 PO; LORA-259 PO; SIMV10TA98 PO
--- NOTE | 2020-12-28 21:20 | NUR ---
C/O HEADACHE X1 WEEK. L ARM NUMBNESS, BLURRED VISION X1 DAY; REPORT STROKE LIKE SYMTOPS LKW=1WEEK/1DAY AGO. REPORTED TO DR. RHODES. NOT A CODE STROKE. PT TO BED 9, AAOX4, ANSWERING QUESTIONS APPROPRIETLY. NOT IN ACUTE DISTRESS, DENIES SOB. PLACED ON MONITOR. PIV STARTED, BLOOD DRAWN.
--- NOTE | 2020-12-28 21:31 | NUR ---
opal espitiaal done; passed reported to dr abbott
--- NOTE | 2020-12-28 21:36 | NUR ---
CALLED FOR CT.
[2020-12-28 21:41] LABS: BASOPHILS # (AUTO) 0.1 /CMM (0.0-0.2); EOSINOPHILS % (AUTO) 2.4 % (0.0-6.0); HEMATOCRIT 39 % (33-45); HEMOGLOBIN 12.8 g/dL (11.5-14.8); LYMPHOCYTES # (AUTO) 4.6 /CMM (0.8-4.8); LYMPHOCYTES % (AUTO) 32.7 % (20.0-44.0); MEAN CORPUSCULAR HGB CONC 33 g/dl (31.0-36.0); MEAN CORPUSCULAR VOLUME 90 fL (82-100); MONOCYTES # (AUTO) 1.1 /CMM (0.1-1.30); MONOCYTES % (AUTO) 7.7 % (2.0-12.0); NEUTROPHILS # (AUTO) 7.8 /CMM (1.8-8.9); NEUTROPHILS % (AUTO) 56.2 % (43.0-81.0); PLATELET COUNT (AUTO) 360 /CMM (150-450); RED BLOOD CELL COUNT(AUTO) 4.34 MIL/uL (4.0-5.2)
[2020-12-28 22:01] LABS: ALBUMIN 3.6 g/dL (3.4-5.0); BILIRUBIN,DIRECT 0.1 mg/dL (0.0-0.2); BILIRUBIN,TOTAL 0.5 mg/dL (0.2-1.0); CALCIUM, SERUM 7.8 mg/dL (8.5-10.1); TOTAL PROTEIN, SERUM 7.5 g/dL (6.4-8.2)
[2020-12-28 22:02] LABS: POTASSIUM 2.4 mmol/L (3.5-5.1)
[2020-12-28] MEDS ORDERED: POTASSIUM CHLORIDE 20 MEQ TAB.PRT.SR PO ONE ×2 (22:18→22:30)
[2020-12-28] MEDS ORDERED: Magnesium 1GM/D5W 100ML PREMIX 100 ML IV ONE (22:18)
[2020-12-28] MEDS ORDERED: Magnesium 1GM/D5W 100ML PREMIX 100 ML IV SCH (22:30)
[2020-12-28] MEDS ORDERED: hydrALAZINE HCL IV 20 MG VIAL IV PRN (23:00)
--- NOTE | 2020-12-28 23:57 | NUR ---
tele [phone]
--- NOTE | 2020-12-29 00:09 | NUR ---
REPORT GIVEN TO JOEL ROGERS FOR SHAN
[2020-12-29] MEDS ORDERED: DEXTROSE 50%-WATER 50 ML DISP.SYRIN IV PRN (00:30)
--- NOTE | 2020-12-29 00:54 | NUR ---
PT TRANSPORTED TO 3RD FLOOR
[2020-12-29 01:00] VITALS: BP 156/77
--- NOTE | 2020-12-29 01:00 | NUR ---
TELE/RN ADMITTING NOTE [facility]AFF MEMBERS AT APPROX. [id number]. PATIENT IS ALERT AND ORIENTED X 4. ABLE TO MAKE NEEDS KNOWN. COMPLAINTS OF HEADACHE 05/13 - WILL ADMINISTER ORDERED MEDICATION. IV ACCESS TO RIGHT AC INTACT, PATENT AND SALINE LOCKED. PATIENT IS AMBULATORY WITH STEADY GAIT. STROKE PRECAUTIONS MAINTAINED. PATIENT HAS NIHSS SCORE OF 0. MILD INVOLUNTARY MOVEMENT OF LEFT ARM. PATIENT IS ON CCHO DIET WITH NO S/SX OF ASPIRATION NOTED. SKIN CHECK PERFORMED WITH NO SKIN ISSUES NOTED. PATIENT ORIENTED TO CALL LIGHT, ROOM AND UNIT. CALL LIGHT WITHIN REACH. ASPIRATION, FALL AND SAFETY PRECAUTIONS MAINTAINED. WILL CONTINUE TO MONITOR.
[2020-12-29] MEDS: ENOXAPARIN SODIUM 40 MG/0.4 ML DISP.SYRIN SQ SCH ×2 (01:03→22:36)
[2020-12-29] MEDS: HYDROCODONE/APAP 5/325MG TABLET PO PRN ×3 (01:15→16:46)
[2020-12-29 01:57] VITALS: BP 157/77
--- NOTE | 2020-12-29 02:00 | NUR ---
TELE/RN NOTE PATIENT NOTED WITH PVC'S AND TRIGEMINY ON TELE MONITOR. NO S/SX OF SOB, RESPIRATORY DISTRESS OR CHANGE IN LOC. MD NOTIFIED WITH NEW ORDERS FOR POTASSIUM 40MEQ PO X 1 AND POTASSIUM 40MEQ IV X 1. ORDERS INPUTTED AND CARRIED OUT. WILL CONTINUE TO MONITOR.
[2020-12-29] MEDS ORDERED: POTASSIUM CHLORIDE 20 MEQ TAB.PRT.SR PO ONE (02:05)
[2020-12-29] MEDS ORDERED: POTASSIUM CHLORIDE 10 MEQ/50 ML PREMIXED IVPB FOR PERIPHERAL LINE IV ONE (02:07)
[2020-12-29 04:00] VITALS: BP 119/65
--- NOTE | 2020-12-29 04:03 | NUR ---
TELE/RN NOTE PATIENT WITH C/O SOB. O2 SAT 98% ON ROOM AIR. PROVIDED O2 2L VIA NC WITH RELIEF OF SYMPTOMS. WILL CONTINUE TO MONITOR.
[2020-12-29 06:08] LABS: BASOPHILS # (AUTO) 0.1 /CMM (0.0-0.2); BASOPHILS % (AUTO) 0.8 % (0.0-2.0); EOSINOPHILS % (AUTO) 3.4 % (0.0-6.0); HEMATOCRIT 36 % (33-45); HEMOGLOBIN 11.9 g/dL (11.5-14.8); LYMPHOCYTES # (AUTO) 3.6 /CMM (0.8-4.8); LYMPHOCYTES % (AUTO) 33.1 % (20.0-44.0); MEAN CORPUSCULAR HGB CONC 34 g/dl (31.0-36.0); MEAN CORPUSCULAR VOLUME 90 fL (82-100); MONOCYTES # (AUTO) 0.9 /CMM (0.1-1.30); MONOCYTES % (AUTO) 8.1 % (2.0-12.0); NEUTROPHILS % (AUTO) 54.6 % (43.0-81.0); PLATELET COUNT (AUTO) 308 /CMM (150-450); RED BLOOD CELL COUNT(AUTO) 3.93 MIL/uL (4.0-5.2)
[2020-12-29 06:09] LABS: CALCIUM, SERUM 7.7 mg/dL (8.5-10.1); CREATININE 0.9 mg/dL (0.6-1.3); MAGNESIUM 1.9 mg/dL (1.8-2.4)
[2020-12-29 06:21] LABS: THYROID STIMULATING HORMONE 1.779 uIU/mL (0.358-3.74)
[2020-12-29] MEDS: BLOOD SUGAR DIAGNOSTIC 1 EACH STRIP IN SCH ×4 (06:27→22:42)
--- NOTE | 2020-12-29 06:30 | NUR ---
TELE/RN CLOSING NOTE PATIENT CURRENTLY SLEEPING IN BED. ALERT AND ORIENTED X 4. ABLE TO MAKE NEEDS KNOWN. NO COMPLAINTS OF PAIN AT THIS TIME. IV ACCESS TO RIGHT AC INTACT, PATENT AND SALINE LOCKED. PATIENT IS AMBULATORY WITH STEADY GAIT. STROKE PRECAUTIONS MAINTAINED. PATIENT IS ON CCHO DIET WITH NO S/SX OF ASPIRATION NOTED. BLOOD GLUCOSE LEVEL THIS AM IS 128. CALL LIGHT WITHIN REACH. ASPIRATION, FALL AND SAFETY PRECAUTIONS MAINTAINED. WILL CONTINUE TO MONITOR.
--- NOTE | 2020-12-29 07:50 | NUR ---
TELE/RN OPENING NOTES RECEIVED PATIENT IN BED. ALERT AND ORIENTED X 4. ABLE TO MAKE NEEDS KNOWN. NO COMPLAINTS OF PAIN AT THIS TIME. CURRENTLY ON 2LPM OF OXYGEN VIA NASAL CANNULA FOR COMFORT. O2 SAT READING RESULT ON O2 AT 98%. IV ACCESS TO RIGHT AC INTACT, PATENT AND SALINE LOCKED. PATIENT IS AMBULATORY WITH STEADY GAIT. STROKE PRECAUTIONS MAINTAINED. PATIENT IS ON CCHO DIET WITH NO S/SX OF ASPIRATION NOTED. SAFETY PRECAUTIONS IN PLACED. BED IS LOCKED ON THE LOWEST POSITION. CALL LIGHT WITHIN REACH. WILL CONTINUE TO MONITOR.
[2020-12-29] MEDS ORDERED: CLOP75TA15 PO (08:03)
[2020-12-29] MEDS ORDERED: LORA-259 PO (08:03)
[2020-12-29] MEDS ORDERED: QUET50TA PO (08:03)
[2020-12-29] MEDS ORDERED: OMEP20CA15 PO (08:03)
[2020-12-29] MEDS ORDERED: CHLO25TA2 PO (08:03)
[2020-12-29] MEDS ORDERED: CHOL100062 PO (08:03)
[2020-12-29] MEDS ORDERED: ATOR80TA PO (08:03)
[2020-12-29] MEDS ORDERED: ASPI-992 PO (08:12)
[2020-12-29] MEDS: CLOPIDOGREL BISULFATE 75 MG TABLET PO SCH (08:34)
[2020-12-29] MEDS: PANTOPRAZOLE 40 MG TABLET.DR PO SCH (08:34)
[2020-12-29 08:43] VITALS: BP 116/74
[2020-12-29] MEDS ORDERED: ASPIRIN EC 325 MG TABLET.DR PO SCH (09:00)
[2020-12-29] MEDS: POTASSIUM CHLORIDE 20 MEQ TAB.PRT.SR PO SCH ×3 (12:31→14:40)
--- NOTE | 2020-12-29 14:40 | NUR ---
[facility] Director note: flight attendant inflight services consult requested for stroke. Patient is a 50-year-old, female. Per chart, patient was brought in on 12/29/20 to rule out stroke. Upon consult, patient was not in her room and JOEL Jeff stated that the patient is having an MRI. SS will coordinate with nursing staff and follow up with the patient at a later time.
[2020-12-29] MEDS ORDERED: GADOTERATE MEGLUMINE 10 MMOL/20 ML VIAL IV ONE (18:46)
--- NOTE | 2020-12-29 19:03 | NUR ---
TELE/RN CLOSING NOTES PATIENT IN BED. ALERT AND ORIENTED X 4. ABLE TO MAKE NEEDS KNOWN. NO COMPLAINTS OF PAIN AT THIS TIME. ON ROOM AIR. IV ACCESS TO RIGHT AC INTACT, PATENT AND SALINE LOCKED. PATIENT IS AMBULATORY WITH STEADY GAIT. STROKE PRECAUTIONS MAINTAINED. PATIENT IS ON CCHO DIET WITH NO S/SX OF ASPIRATION NOTED. SAFETY PRECAUTIONS IN PLACED. BED IS LOCKED ON THE LOWEST POSITION. CALL LIGHT WITHIN REACH. WILL ENDORSE TO THE NEXT SHIFT FOR CONTINUITY OF CARE.
--- NOTE | 2020-12-29 19:30 | NUR ---
MS/RN OPENING NOTES RECEIVED PATIENT SLEEPING IN BED, EASY TO AROUSE. PATIENT IS ALERT AND ORIENTED X 4. PATIENT BREATHING IS EVEN AND UNLABORED, NO SIGNS OF RESPIRATORY DISTRESS NOTED. NO ACUTE DISTRESS NOTED. IV ACCESS INTACT FLUSHING WELL, R AC 20G. SAFETY MEASURES ARE IN PLACE, BED LOCKED AND PLACED IN LOW POSITION, SIDE RAIL UP X 2, CALL LIGHT WITHIN REACH. WILL CONTINUE WITH PATIENT PLAN OF CARE.
[2020-12-29 20:00] VITALS: BP 149/91
[2020-12-29] MEDS ORDERED: SIMVASTATIN 40 MG TABLET PO SCH (22:00)
[2020-12-29] MEDS ORDERED: QUETIAPINE FUMARATE 25 MG TABLET PO SCH (22:00)
[2020-12-29] MEDS ORDERED: SIMVASTATIN 20 MG TABLET PO SCH (22:00)
[2020-12-29] MEDS: INSULIN REGULAR, HUMAN 100 UNIT/ML 3 ML VIAL SQ PRN (22:43)
[2020-12-30] MEDS: HYDROCODONE/APAP 5/325MG TABLET PO PRN (06:00)
--- NOTE | 2020-12-30 06:10 | NUR ---
MS/RN NOTES PATIENT REQUESTING FOR PAIN MED. PATIENT GIVEN NORCO 5 MG PO. V/S STABLE.
[2020-12-30 06:14] LABS: BASOPHILS % (AUTO) 0.5 % (0.0-2.0); EOSINOPHILS % (AUTO) 2.9 % (0.0-6.0); HEMATOCRIT 35 % (33-45); HEMOGLOBIN 11.7 g/dL (11.5-14.8); LYMPHOCYTES # (AUTO) 3.1 /CMM (0.8-4.8); MEAN CORPUSCULAR HGB CONC 33 g/dl (31.0-36.0); MEAN CORPUSCULAR VOLUME 90 fL (82-100); MONOCYTES # (AUTO) 0.7 /CMM (0.1-1.30); MONOCYTES % (AUTO) 7.1 % (2.0-12.0); NEUTROPHILS # (AUTO) 5.8 /CMM (1.8-8.9); NEUTROPHILS % (AUTO) 58.5 % (43.0-81.0); PLATELET COUNT (AUTO) 307 /CMM (150-450); RED BLOOD CELL COUNT(AUTO) 3.92 MIL/uL (4.0-5.2)
[2020-12-30] MEDS: BLOOD SUGAR DIAGNOSTIC 1 EACH STRIP IN SCH ×2 (06:26→11:47)
[2020-12-30] MEDS: INSULIN REGULAR, HUMAN 100 UNIT/ML 3 ML VIAL SQ PRN (06:27)
--- NOTE | 2020-12-30 06:54 | NUR ---
MS/RN CLOSING NOTES PATIENT RESTING IN BED. PATIENT IS ALERT AND ORIENTED X 4. PATIENT BREATHING IS EVEN AND UNLABORED, NO SIGNS OF RESPIRATORY DISTRESS NOTED. NO ACUTE DISTRESS NOTED. IV ACCESS INTACT FLUSHING WELL, R AC 20G. ALL NEEDS HAVE BEEN MET DURING SHIFT. SAFETY MEASURES ARE IN PLACE, BED LOCKED AND PLACED IN LOW POSITION, SIDE RAIL UP X 2, CALL LIGHT WITHIN REACH. WILL ENDORSE CARE TO DAY SHIFT NURSE.
[2020-12-30 07:09] LABS: CALCIUM, SERUM 7.8 mg/dL (8.5-10.1); CREATININE 0.7 mg/dL (0.6-1.3); MAGNESIUM 1.8 mg/dL (1.8-2.4); PHOSPHORUS 2.8 mg/dL (2.5-4.9)
--- NOTE | 2020-12-30 07:56 | NUR ---
MS/RN OPENING NOTES RECEIVED PATIENT SLEEPING IN BED, EASY TO AROUSE. PATIENT IS ALERT AND ORIENTED X 4. PATIENT BREATHING IS EVEN AND UNLABORED, NO SIGNS OF RESPIRATORY DISTRESS NOTED. NO ACUTE DISTRESS NOTED. IV ACCESS INTACT FLUSHING WELL, R AC 20G. SAFETY MEASURES ARE IN PLACE, BED LOCKED AND PLACED IN LOW POSITION, SIDE RAIL UP X 2, CALL LIGHT WITHIN REACH AND ANSWERED PROMPTLY
[2020-12-30 08:00] VITALS: BP 122/79
[2020-12-30] MEDS: CLOPIDOGREL BISULFATE 75 MG TABLET PO SCH (08:20)
[2020-12-30] MEDS: PANTOPRAZOLE 40 MG TABLET.DR PO SCH (08:20)
[2020-12-30] MEDS ORDERED: ASPIRIN EC 81 MG TABLET.DR PO SCH (09:00)
[2020-12-30] MEDS ORDERED: POTASSIUM CHLORIDE 20 MEQ TAB.PRT.SR PO SCH (10:00)
[2020-12-30 16:00] VITALS: BP 101/66
== END 2020-12-30 18:10 | disposition home or self-care (01) | DRG 47 ==
LOC: ER 21:15 → TELE 12-29 00:31 → MED 12-29 10:45
PROVIDERS: ADMIT Nurse Practitioner Acute Care; ATTEND Student in an Organized Health Care Education/Training Program
DX: G45.9 Transient cerebral ischemic attack, unspecified (principal); D68.59 Other primary thrombophilia; E66.01 Morbid (severe) obesity due to excess calories; Z68.42 Body mass index [BMI] 45.0-49.9, adult; G25.5 Other chorea; I16.0 Hypertensive urgency; E87.6 Hypokalemia; E11.9 Type 2 diabetes mellitus without complications; Z86.73 Personal history of transient ischemic attack (TIA), and cerebral infarction without residual deficits; R29.701 NIHSS score 1; E78.5 Hyperlipidemia, unspecified; F17.210 Nicotine dependence, cigarettes, uncomplicated; F32.9 Major depressive disorder, single episode, unspecified; F43.10 Post-traumatic stress disorder, unspecified; I10 Essential (primary) hypertension; M19.90 Unspecified osteoarthritis, unspecified site; Z96.641 Presence of right artificial hip joint; Z96.651 Presence of right artificial knee joint; F41.9 Anxiety disorder, unspecified; V89.2XXS Person injured in unspecified motor-vehicle accident, traffic, sequela; Z91.19 Patient's noncompliance with other medical treatment and regimen; M54.81 Occipital neuralgia; K21.9 Gastro-esophageal reflux disease without esophagitis; M79.89 Other specified soft tissue disorders; Z79.84 Long term (current) use of oral hypoglycemic drugs; R40.2142 Coma scale, eyes open, spontaneous, at arrival to emergency department; R40.2362 Coma scale, best motor response, obeys commands, at arrival to emergency department; R40.2252 Coma scale, best verbal response, oriented, at arrival to emergency department
CPT/HCPCS: 36415; 70450-TC; 70553-TC; 71045-TC; 72050-TC; 80048-TC; 80061-TC; 80076-TC; 82962-TC; 83735-TC; 84100-TC; 84443-TC; 84703-TC; 85025-TC; 85730-TC; 87081-TC; 92526; 92611-TC; 93307-TC; 93880-TC; 93971-TC; 97116-TC; 97530-TC; A9575; C9803; G0378; J1650; J1815; J3475; J3480; J7040; J7050